=== PATIENT | male | born 1960 | race Caucasian/White ===

== ENCOUNTER 2016-11-20 21:16 | Emergency (ER) | payer BC ==
[~2016-11-20] VITALS: Ht 175.3 cm; Wt 74.8 kg
--- NOTE | 2016-11-20 21:30 | NUR ---
TO BED 4 A 56 YO MALE BIBSELF, C/O LEFT HAND 2ND DIGIT OF APPROXIMATELY AN INCH OF LACERATION USING FRED SAW AT 8PM. AAOX4, AMBULATORY WITH STEADY GAIT. VSS AFEBRILE. NO COMFORT MEASURES RENDERED. INITIAL WOUND CARE DONE. AWAITING FOR ER MD ZHENG.
[2016-11-20] MEDS ORDERED: TDAP [DIPH/PERTUSSIS/TET] 0.5 ML VIAL IM ONE ×2 (22:30→22:31)
--- NOTE | 2016-11-20 22:40 | NUR ---
TETANUS SHOT GIVEN ON THE RIGHT DELTOID IM.
--- NOTE | 2016-11-20 23:10 | NUR ---
DR SHI AT BEDSIDE FOR WOUND TREATMENT.
--- NOTE | 2016-11-20 23:15 | NUR ---
SPLINT PLACED ON THE LEFT SECOND DIGIT FINGER. INTACT CMS.
--- NOTE | 2016-11-20 23:27 | NUR ---
Patient discharged to home in stable condition. Written and verbal after care instructions given. Patient verbalizes understanding of instruction. Patient is ambulatory with steady gait, no further complaints.
[2016-11-20 23:28] VITALS: BP 110/68
== END 2016-11-20 23:30 | disposition home or self-care (01) ==
LOC: ER 21:19
DX: S61.211A Laceration without foreign body of left index finger without damage to nail, initial encounter (principal); F17.200 Nicotine dependence, unspecified, uncomplicated; W27.8XXA Contact with other nonpowered hand tool, initial encounter; Y93.89 Activity, other specified; Y92.89 Other specified places as the place of occurrence of the external cause; Y99.8 Other external cause status
CPT/HCPCS: 29130; 73140; 90471; 90715; 99284; A6402